=== PATIENT | female | born 1965 | race Caucasian/White ===

== ENCOUNTER 2017-02-08 08:11 | Day surgery (SDC) | payer BC ==
[~2017-02-08 08:11] MED LIST: Bupivacaine 0.25% 10 ML SDV ONE
[2017-02-08] MEDS: Lactated Ringers 1,000 ML IV SCH ×2 (08:49→12:10)
[2017-02-08] MEDS ORDERED: Lidocaine 2% 5 ML SDV ONE (08:52)
[2017-02-08] MEDS ORDERED: Ondansetron 4 MG/2 ML SDV ONE (08:52)
[2017-02-08] MEDS ORDERED: Propofol 200 MG/20 ML SDV ONE (08:52)
[2017-02-08] MEDS ORDERED: fentaNYL 100 MCG/2 ML SDV ONE (08:52)
[2017-02-08] MEDS ORDERED: Midazolam 1 MG/ML 2 ML SDV ONE (08:53)
--- NOTE | 2017-02-08 08:55 | PCM.PREANE ---
Preanesthetic Assessment - Procedure Proposed Procedure: Closure of abdominal wound - Anesthesia/Transfusion/Family Hx Anesthesia History: Prior Anesthesia Without Reaction Family History of Anesthesia Reaction: No Transfusion History: No Prior Transfusion(s) - Review of Systems Cardiovascular: Other (hypertension) Other: Reports: None - Physical Assessment NPO Status Date: 02/08/17 (AM Med) NPO Status Time: 22:00 Height: 1.52 m Weight: 73.028 kg Mental Status: Alert & Oriented x3 Dentition: Reports: Normal Dentition Thyro-Mental Finger Breadths: 3 Mouth Opening Finger Breadths: 2 ROM/Head Extension: Full Lungs: Clear to Auscultation Cardiovascular: Regular Rate - Allergies Allergies/Adverse Reactions: Allergies Allergy/AdvReac Type Severity Reaction Status Date / Time Sulfa (Sulfonamide Allergy Hives Verified 02/05/17 12:28 Antibiotics) - Anesthesia Plan Free Text/Narrative:: Discussed General anesthesia vs Sedation and local by surgeon Pre-Op Medication Ordered: None - Acknowledgements Anesthesia Type Planned: General Anesthesia Pt an Appropriate Candidate for the Planned Anesthesia: Yes Alternatives and Risks of Anesthesia Discussed w Pt/Guardian: Yes Pt/Guardian Understands and Agrees with Anesthesia Plan: Yes PreAnesthesia Questionnaire Other HEENT History: weras glasses/contacts Cardiovascular History: Reports: Hypertension Gastrointestinal History: Reports: GERD Genitourinary History: Reports: Renal Calculus 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: Musculoskeletal History: Reports: Fracture Other Musculoskeletal History: hx of fx clavicle Neurological History: Reports: Other (See Below) Other Neuro History: hx of motion sickness Psychiatric History: Reports: Anxiety Endocrine/Metabolic History: Reports: Obesity/BMI 30+ Dermatologic History: Reports: Other (See Below) Other Dermatologic History: gets a bumpy rash on heels and hands, gets frequent "cold sores" - Past Surgical History Head Surgeries/Procedures: Reports: None Female Surgical History: Reports: Breast Biopsy, Section, Lithotripsy/ESWL, Other (See Below) Other Female Surgeries/Procedures: Abdominoplasty Neurological Surgical History: Reports: C-Spine Other Neurological Surgeries/Procedures: cervical spine fusion ( has hardware) Musculoskeletal Surgical History: Reports: Arthroscopic Knee, Other (See Below) Other Musculoskeletal Surgeries/Procedures:: excision of ganglion cyst middle finger - SUBSTANCE USE Smoking Status *Q: Never Smoker Second Hand Smoke Exposure: No Days Per Week of Alcohol Use: 0 Number of Drinks Per Day: 0 Total Drinks Per Week: 0 Recreational Drug Use History: No - HOME MEDS Home Medications: Home Meds LORazepam 0.5 mg PO TID MDD 2 mg 02/05/17 [History] Lisinopril 5 mg PO DAILY 02/05/17 [History] - CURRENT (IN HOUSE) MEDS Current Meds: Current Medications Hydrocodone Bitart/Acetaminophen ([place] 325-5 Mg) 1 tab PO Q4H PRN PRN Reason: Pain Bupivacaine HCl (Sensorcaine-Mpf 0.25%) 10 ml INJECT ONETIME ONE Stop: 02/08/17 09:01 Cefazolin Sodium/Dextrose 2 gm (/ Premix) 50 mls @ 100 mls/hr IV ONETIME ONE Stop: 02/08/17 09:29 Lactated Ringer's (Ringers, Lactated) 1,000 mls @ 125 mls/hr IV ASDIRECTED MELISSA Last Admin: 02/08/17 08:49 Dose: 125 mls/hr Discontinued Medications Bupivacaine HCl (Sensorcaine-Mpf 0.25%) Confirm Administered Dose 10 ml .ROUTE .STK-MED ONE Stop: 02/08/17 07:17
[2017-02-08] MEDS ORDERED: Bupivacaine 0.25% 10 ML SDV INJECT ONE (09:00)
[2017-02-08] MEDS ORDERED: Acetaminophen/HYDROcodone 325-5 MG Tab PO PRN (09:00)
[2017-02-08] MEDS ORDERED: ceFAZolin 2 GM in Premix Bag 1 BAG IV ONE (09:00)
[2017-02-08] MEDS ORDERED: ceFAZolin 1 GM Vial ONE (09:44)
[2017-02-08] MEDS ORDERED: Sodium Chloride 0.9% 20 ML ONE (09:44)
[2017-02-08] MEDS ORDERED: Bupivacaine 0.25% 10 ML SDV ONE (10:05)
[2017-02-08] MEDS ORDERED: Dermabond Prineo 1 Tube TOP ONE (10:12)
[2017-02-08] MEDS ORDERED: fentaNYL 100 MCG/2 ML SDV IVPUSH PRN (10:44)
--- NOTE | 2017-02-08 10:46 | PCM.POSTAN ---
POST ANESTHESIA ASSESSMENT - MENTAL STATUS Mental Status: Alert, Oriented - RESPIRATORY Respiratory Status: Respiratory Rate WNL, Airway Patent, O2 Saturation Stable - CARDIOVASCULAR CV Status: Pulse Rate WNL, Blood Pressure Stable - GASTROINTESTINAL GI Status: No Symptoms - POST OP HYDRATION Hydration Status: Adequate & Stable
--- NOTE | 2017-02-08 11:48 | PCM48HPAN ---
Post Anesthesia Note - EVALUATION WITHIN 48HRS OF ANESTHETIC Vital Signs in Normal Range: Yes Patient Participated in Evaluation: Yes Respiratory Function Stable: Yes Airway Patent: Yes Cardiovascular Function Stable: Yes Hydration Status Stable: Yes Pain Control Satisfactory: Yes Nausea and Vomiting Control Satisfactory: Yes Mental Status Recovered: Yes
[2017-02-08 15:04] VITALS: BP 100/68
--- NOTE | 2017-02-12 16:48 | PCM.OPNOTE ---
- General Post-Op/Procedure Note Date of Surgery/Procedure: 02/08/17 Operative Procedure(s): excison of left lower abdominal wound with intermediate repair of 15cm Pre Op Diagnosis: left abdominal wound -draining Post-Op Diagnosis: Same Anesthesia Technique: General LMA, Local Primary Surgeon: Sara Vaughn Training Development Manager: Roxi Heard Complications: None Condition: Good Free Text/Narrative:: [id number]
--- NOTE | 2017-02-12 20:50 | OR ---
SURGEON: IRIS BARRETT MD DATE OF PROCEDURE: 02/08/2017 PREOPERATIVE DIAGNOSIS: Left lower abdominal wound with persistent draining sinus. POSTOPERATIVE DIAGNOSIS: Left lower abdominal wound with persistent draining sinus. PROCEDURE: Excision of left lower abdominal wound with intermediate repair of 15 cm. ROOM SERVICE MANAGER: JOHN Cordero. ANESTHESIA: General LMA with local anesthesia. INDICATIONS: Ms. 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 She has had ultrasound and other workup and unfortunately continues to have symptoms. Risks and benefits of excision and repair were discussed with her and she was in agreement to proceed. Risks were including, but not limited to, bleeding, infection, damage to underlying and overlying structures, possible need for future interventions, possible scarring. PROCEDURE IN DETAIL: After informed consent was obtained and placed on the chart, the patient was brought to the operating theater and laid in supine position. After adequate general anesthetic was obtained, the area was prepped and draped in normal fashion. A time-out was completed to confirm side and site. Attention was then paid to dissection around the marked draining sinus tract all the way down to the underlying hard tissue. Excision was continued in elliptical fashion for a total length of 15 cm. Dissection was carried circumferentially around the lesion and excised and sent for pathology. The area was copiously irrigated. Meticulous hemostasis was obtained and no residual wound was left. Once adequately removed, the deeper layers were closed using a 2-0 PDS suture and 3-0 Monocryl stitch for the dermis and a running 4-0 subcuticular for the skin. The skin was then dressed with a Prineo wound care closure system. This was applied and ABD was applied for over the top dressing once allowed to dry. The patient tolerated this well, and all counts and needles were correct at the end of the case, and 0.25% Marcaine was used for local anesthesia. FOLLOWUP INSTRUCTIONS: The patient will see us in approximately 2 weeks or sooner if any problems, questions, or concerns. She was given a prescription for pain control if needed. RODOLFO / CHUCK /[phone]
== END 2017-02-08 13:00 | disposition home or self-care (01) ==
LOC: MW.SDS 08:11
PROVIDERS: ATTEND Plastic Surgery
DX: L98.8 Other specified disorders of the skin and subcutaneous tissue (principal); I10 Essential (primary) hypertension; F41.9 Anxiety disorder, unspecified; E78.00 Pure hypercholesterolemia, unspecified; M19.90 Unspecified osteoarthritis, unspecified site; K21.9 Gastro-esophageal reflux disease without esophagitis; E66.9 Obesity, unspecified; Z68.31 Body mass index [BMI] 31.0-31.9, adult; Z98.1 Arthrodesis status; Z87.442 Personal history of urinary calculi; Z80.1 Family history of malignant neoplasm of trachea, bronchus and lung; Z80.3 Family history of malignant neoplasm of breast; Z88.2 Allergy status to sulfonamides; Z79.899 Other long term (current) drug therapy; Z98.890 Other specified postprocedural states
CPT/HCPCS: 11406; 12035; A9270; J0690; J2250; J2405; J3010; J7120; 00840; 88304; J2704

== ENCOUNTER 2018-08-05 11:11 | Emergency (ER) | payer BC ==
[2018-08-05] MEDS ORDERED: HYDROmorphone 2 MG/ML SDV IM ONE (11:40)
[2018-08-05] MEDS ORDERED: Ondansetron 4 MG Tab.DIS PO ONE (11:41)
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
[2018-08-05] MEDS ORDERED: HYDROmorphone 1 MG/ML Syringe IM ONE (11:56)
[2018-08-05] MEDS ORDERED: traMADol 50 MG Tab PO ONE (12:14)
--- NOTE | 2018-08-05 12:26 | CR ---
EXAMINATION: Cervical spine HISTORY: Pain COMPARISON: 01/26/2014 TECHNIQUE: AP and lateral views FINDINGS: The cervical spinal alignment is normal. Vertebral body heights appear maintained. Anterior cervical fusion hardware is noted extending from C5 to C7 with intervertebral osseous fusion. There is no fracture or acute osseous abnormality. Bone mineralization is otherwise normal. Prevertebral soft tissues are normal. IMPRESSION: Degenerative and postoperative changes without acute findings
[2018-08-05] MEDS ORDERED: Bacitracin Oint 1 GM U/D Packet TOP ONE (12:31)
[2018-08-05 13:11] VITALS: BP 127/81
== END 2018-08-05 13:10 | disposition home or self-care (01) ==
LOC: MW.ED 11:11
DX: T20.02XA Burn of unspecified degree of lip(s), initial encounter (principal); S01.81XA Laceration without foreign body of other part of head, initial encounter; S16.1XXA Strain of muscle, fascia and tendon at neck level, initial encounter; I10 Essential (primary) hypertension; E66.9 Obesity, unspecified; Z88.2 Allergy status to sulfonamides; Z79.899 Other long term (current) drug therapy; W07.XXXA Fall from chair, initial encounter; X16.XXXA Contact with hot heating appliances, radiators and pipes, initial encounter
CPT/HCPCS: 72040; 99283; A9270